=== PATIENT | male | born 1970 | race Caucasian/White ===

== ENCOUNTER 2020-12-09 08:29 | Emergency (ER) | payer OTHER | END 2020-12-09 11:25 | disposition short-term general hospital (02) | LOC: ER1 08:29 | DX: S63.065A Dislocation of metacarpal (bone), proximal end of left hand, initial encounter (principal); I10 Essential (primary) hypertension; E11.9 Type 2 diabetes mellitus without complications; W22.8XXA Striking against or struck by other objects, initial encounter; Y92.009 Unspecified place in unspecified non-institutional (private) residence as the place of occurrence of the external cause | CPT/HCPCS: 29125; 73110; 73130; 96374; 96375; 99283; J2270; J2405 ==

== ENCOUNTER 2021-09-30 17:36 | Emergency (ER) | payer OTHER ==
[2021-09-30 19:03] LABS: HEMOGLOBIN 14.6 gm/dl (14.0-17.5); RED BLOOD COUNT 4.7 M/UL (4.20-5.50); WHITE BLOOD COUNT 6.9 K/UL (4.5-11.0)
[2021-09-30 19:25] LABS: BUN/CREATININE RATIO 20 (0-10)
[2021-09-30] MEDS ORDERED: BACTRIM DS TAB1 EACH PO (20:34)
[2021-09-30] MEDS ORDERED: CEPHALEXIN500 M1 PO (20:34)
== END 2021-09-30 20:57 | disposition home or self-care (01) ==
LOC: ER1 17:36
PROVIDERS: Physician Assistant
DX: L02.414 Cutaneous abscess of left upper limb (principal); L02.413 Cutaneous abscess of right upper limb; E11.9 Type 2 diabetes mellitus without complications; I10 Essential (primary) hypertension
CPT/HCPCS: 10060; 80053; 83605; 85025; 87040; 87070; 87077; 87186; 99283

== ENCOUNTER 2022-01-21 10:27 | Emergency (ER) | payer OTHER ==
[~2022-01-21 10:27] MED LIST: BACTRIM DS TAB1 EACH PO; CEPHALEXIN500 M1 PO
[2022-01-21] MEDS ORDERED: DOXYCYCLINE HY100 MG PO (11:06)
== END 2022-01-21 11:15 | disposition home or self-care (01) ==
LOC: ER1 10:27
DX: J34.0 Abscess, furuncle and carbuncle of nose (principal); E11.9 Type 2 diabetes mellitus without complications; I10 Essential (primary) hypertension
CPT/HCPCS: 99283